=== PATIENT | male | born 1970 | race Caucasian/White ===

== ENCOUNTER 2024-08-13 11:01 | Inpatient (IN) | payer SELFPAY ==
[2024-08-13 13:11] LABS: BASOPHILS ABSOLUTE AUTO 0.1 K/mm3 (0.0-0.2); BASOPHILS PERCENT AUTO 0.5 % (0.0-1.0); EOSINOPHILS ABSOLUTE AUTO 0.5 K/mm3 (0.0-0.4); HEMATOCRIT 43.4 % (42.0-52.0); IMMATURE GRAN ABSOLUTE AUTO 0.03 K/mm3 (0.00-0.05); IMMATURE GRAN PERCENT AUTO 0.2 % (0.0-0.4); LYMPHOCYTES ABSOLUTE AUTO 2.8 K/mm3 (1.0-4.8); LYMPHOCYTES PERCENT AUTO 23.4 % (24.0-44.0); MEAN CORPUSCULAR HEMOGLOBIN 30.1 pg (28.0-32.0); MEAN CORPUSCULAR HGB CONC 34.6 g/dl (32.0-36.0); MEAN CORPUSCULAR VOLUME 87.1 fl (83.0-99.0); MEAN PLATELET VOLUME 9.7 fl (9.4-12.4); MONOCYTES ABSOLUTE AUTO 0.9 K/mm3 (0.0-0.8); MONOCYTES PERCENT AUTO 7.3 % (0.0-8.0); NEUTROPHILS ABSOLUTE AUTO 7.8 K/mm3 (1.8-7.7); NEUTROPHILS PERCENT AUTO 64.6 % (41.0-71.0); PLATELET COUNT,PLT 234 K/mm3 (150-400); RED BLOOD CELL COUNT 4.98 M/mm3 (4.52-5.90); WHITE BLOOD CELL COUNT,WBC 12.08 K/mm3 (3.9-11.3)
[2024-08-13 13:30] LABS: INR 0.98; PROTHROMBIN TIME 10.4 SECONDS (9.7-12.0)
[2024-08-13 13:33] LABS: A/G RATIO 1.2 (1-2); BILIRUBIN TOTAL 0.3 mg/dL (0.2-1.0); CREATININE 1.1 mg/dL (0.7-1.3); EST CRCL DRUG DOSING (CG) 90.3 mL/min; PROTEIN TOTAL,TP 7.3 g/dl (6.4-8.2)
[2024-08-13] MEDS: Iopamidol 755 Mg/ML 100 ML Bottle IVPUSH ONE (14:30)
[2024-08-13] MEDS: Sodium Chloride 0.9% 10 ML Syringe FLUSH ONE (14:30)
[2024-08-13] MEDS: Sodium Chloride 0.9% 100 ML IV SCH (14:30)
[2024-08-13] MEDS: Clopidogrel 75 MG Tab PO ONE (16:05)
[2024-08-13] MEDS: atorvaSTATin 40 MG Tab PO ONE (16:06)
[2024-08-13] MEDS: Aspirin 81 MG Tab.Chew PO ONE (16:06)
[2024-08-13 16:12] LABS: CHOLESTEROL HDL 31 mg/dL (40-59); CHOLESTEROL LDL DIRECT 91 mg/dL (<100); CHOLESTEROL TOTAL 173 mg/dL (<200); TRIGLYCERIDES 395 mg/dL (<150)
[2024-08-13 16:13] LABS: HEMOGLOBIN A1C 5.6 %
[2024-08-13] MEDS ORDERED: Ondansetron 4 MG/2 ML SDV IV PRN (17:05)
[2024-08-13] MEDS: Acetaminophen 325 MG Tab PO PRN (18:12)
[2024-08-13] MEDS: Nicotine 14 MG/24 Hr Patch TRDERM SCH (18:25)
[2024-08-13] MEDS: oxyCODONE 5 MG Tab PO PRN (19:18)
[2024-08-14 07:05] LABS: HEMATOCRIT 43.7 % (42.0-52.0); HEMOGLOBIN 15.1 gm/dl (14.0-18.0); MEAN CORPUSCULAR HEMOGLOBIN 30.5 pg (28.0-32.0); MEAN CORPUSCULAR HGB CONC 34.6 g/dl (32.0-36.0); MEAN CORPUSCULAR VOLUME 88.3 fl (83.0-99.0); MEAN PLATELET VOLUME 10.2 fl (9.4-12.4); PLATELET COUNT,PLT 217 K/mm3 (150-400); RED BLOOD CELL COUNT 4.95 M/mm3 (4.52-5.90); WHITE BLOOD CELL COUNT,WBC 9.82 K/mm3 (3.9-11.3)
[2024-08-14 07:14] LABS: A/G RATIO 1.2 (1-2); ALBUMIN 3.8 g/dl (3.4-5.0); ANION GAP 17.3 (5-15); BILIRUBIN TOTAL 0.4 mg/dL (0.2-1.0); CALCIUM 9.1 mg/dL (8.5-10.1); EST CRCL DRUG DOSING (CG) 96.55 mL/min; POTASSIUM,K 4.3 mEq/L (3.5-5.1); PROTEIN TOTAL,TP 6.9 g/dl (6.4-8.2)
[2024-08-14 07:32] LABS: HEMOGLOBIN A1C 5.9 %
[2024-08-14] MEDS: Aspirin 81 MG Tab.Chew PO SCH (09:32)
[2024-08-14] MEDS: Enoxaparin 40 MG/0.4 ML Syringe SUBCUT SCH (09:32)
[2024-08-14] MEDS: Clopidogrel 75 MG Tab PO SCH (09:32)
[2024-08-14] MEDS ORDERED: atorvaSTATin 40 MG Tab PO SCH (21:00)
== END 2024-08-14 12:25 | disposition home or self-care (01) | DRG 66 ==
LOC: JD.ED 11:01 → JD.MS 16:55
PROVIDERS: ADMIT Internal Medicine; ATTEND Internal Medicine
DX: I63.9 Cerebral infarction, unspecified (principal); R29.702 NIHSS score 2; Z87.891 Personal history of nicotine dependence
CPT/HCPCS: 36415; 70450; 70450-26; 70496; 70496-26; 70498; 70498-26; 70551; 70551-26; 80053; 80061; 83036; 85025; 85027; 85610; 93005; 93010; 93306; 97161-GP; 97530-GP; 99285; A9270-GY; J1650; J3490; Q9967